=== PATIENT | male | born 1980 | race Caucasian/White ===

== ENCOUNTER → 2024-11-23 | Day surgery (SDC) | payer OTHER ==
[~2024-11-23] MED LIST: ATROPINE SULFATE 1 MG/ML VIAL ONE; DEXTROAMPHETAMI PO; FENTANYL CITRATE/PF 100MCG/2 ML INJ ONE; HYDRALAZINE HCL 20 MG/ML VIAL ONE; JARDIANCE10 MG PO; METFORMIN HCL500 MG PO; MIDAZOLAM HCL 2 MG/2 ML VIAL ONE; OZEMPIC1 MG/0.71; PROPOFOL IV EMULSION 10 MG/ML 20 ML VIAL ONE
[2024-11-23] MEDS: LACTATED RINGER'S 1,000 ML ONE (15:55)
[2024-11-23 18:03] VITALS: TEMP 98.4
[2024-11-23 18:30] VITALS: BP 121/79; PULSE 79; RESP 18; O2SAT 98
== END | disposition home or self-care (01) ==
LOC: OR 14:51
PROVIDERS: ATTEND Internal Medicine Gastroenterology
DX: Z12.11 Encounter for screening for malignant neoplasm of colon (principal); D12.2 Benign neoplasm of ascending colon; K64.8 Other hemorrhoids; K21.9 Gastro-esophageal reflux disease without esophagitis; K75.81 Nonalcoholic steatohepatitis (NASH); G47.33 Obstructive sleep apnea (adult) (pediatric); E11.9 Type 2 diabetes mellitus without complications; R03.0 Elevated blood-pressure reading, without diagnosis of hypertension; F90.9 Attention-deficit hyperactivity disorder, unspecified type; Z88.6 Allergy status to analgesic agent; Z79.85 Long-term (current) use of injectable non-insulin antidiabetic drugs; Z79.84 Long term (current) use of oral hypoglycemic drugs; Z79.899 Other long term (current) drug therapy; Z68.35 Body mass index [BMI] 35.0-35.9, adult
CPT/HCPCS: 36415; 45385; 82948; 93005; J0360; J0461; J2250; J2704; J3010; J7121; 45378